=== PATIENT | female | born 1965 | race Two or more races ===

== ENCOUNTER 2023-07-31 04:56 | Emergency (ER) | payer MEDICAID ==
[~2023-07-31] VITALS: Ht 160 cm; Wt 77.0 kg
[2023-07-31 05:30] VITALS: BP 123/67; PULSE 103; RESP 16
[2023-07-31 06:57] VITALS: O2SAT 96
[2023-07-31] MEDS ORDERED: IBUP-1456 PO (07:57)
[2023-07-31] MEDS ORDERED: IBUPROFEN 800 MG TAB PO ONE (08:00)
[2023-07-31 08:05] VITALS: TEMP 97.7
== END 2023-07-31 08:08 | disposition home or self-care (01) ==
LOC: ER 04:56
DX: S62.102A Fracture of unspecified carpal bone, left wrist, initial encounter for closed fracture (principal); W01.0XXA Fall on same level from slipping, tripping and stumbling without subsequent striking against object, initial encounter; Y93.89 Activity, other specified; Y92.89 Other specified places as the place of occurrence of the external cause; Y99.8 Other external cause status
CPT/HCPCS: 29515; 73610